=== PATIENT | female | born 2005 | race Caucasian/White ===

== ENCOUNTER → 2024-01-25 | Outpatient (CLI) | payer BC, SELFPAY ==
--- NOTE | 2024-01-25 13:48 | CT_ITS ---
CT LEFT LOWER EXTREMITY WITH 3-D IMAGING CLINICAL INDICATION: Other sprain of left foot, initial encounter. TECHNIQUE: Axial CT images of the left lower extremity (including left ankle and left foot) was performed without IV contrast material. Coronal and sagittal reformats were provided. The protocol utilizes one or more of the following dose reduction techniques: automated exposure control, adjustment of mA and/or kV according to patient size, and/or use of iterative reconstruction technique. RADIATION DOSAGE (If Supplied By Facility): CTDIvol = ( 15.35 ) mGy, DLP = ( 572.52 ) mGycm COMPARISON: No relevant prior comparison study available. FINDINGS: Bones: There is a comminuted fracture of the distal fibular shaft, with 5 mm lateral displacement. There is 4 mm lateral subluxation of the talar dome with respect to the distal tibia. The remainder of the osseous structures are intact. No lytic or blastic osseous masses. Soft Tissues: There is mild subcutaneous soft tissue edema along the lateral aspect of the ankle. The superficial soft tissues are otherwise unremarkable without evidence of hematoma or foreign body. The deep soft tissue structures are unremarkable. CT/Extremity Lower without Contra IMPRESSION: Comminuted fracture of the distal fibular shaft, with 5 mm lateral displacement. 4 mm lateral subluxation of the talar dome with respect to the distal tibia. Electronically Signed: Nick Mcmahan MD at 15:41 EDT ,
== END | disposition home or self-care (01) ==
PROVIDERS: Referring Provider Physician Assistant; Visit Provider Physician Assistant
DX: S93.692A Other sprain of left foot, initial encounter (principal)
CPT/HCPCS: 73700